=== PATIENT | female | born 1940 | race Caucasian/White ===

== ENCOUNTER 2025-05-31 11:31 | Day surgery (SDC) | payer BC, MEDICAID ==
[2025-05-31] VITALS (7 sets, daily range): BP systolic 142–174; BP diastolic 70–85; PULSE 62–77; RESP 16; TEMP 99; O2SAT 94–97
[~2025-05-31] VITALS: Ht 162.6 cm; Wt 58.4 kg
[~2025-05-31 11:31] MED LIST: ALB0.5UD NEB; APIX2.5T PO; ATOR80TA13 PO; HYDR-3972 PO; LEVO75TA7 PO; LOSA-415 PO; METO-384 PO; METO-395 PO; MONT-48 PO; OMEP40CA21 PO; ONDA-243 PO; OXYB5TAB21 PO; PRAM0.5T12 PO; SERT100T PO; SUMA25TA35 PO
[2025-05-31] MEDS ORDERED: fentaNYL/PF 50MCG/1 ML 2ML syringe ONE (12:20)
[2025-05-31] MEDS ORDERED: midazolam 1 mg/ML 2ml injection ONE (12:20)
[2025-05-31 12:31] LABS: MEAN PLATELET VOLUME 9.1 FL (7.4-10.4); RED CELL DISTRIBUTION WIDTH 17.6 % (11.5-14.5)
[2025-05-31 12:45] LABS: APTT 28 SECONDS (22-32); INR 1.1 INR
[2025-05-31 12:47] LABS: CREATININE 0.86 MG/DL (0.40-0.90); TOTAL CARBON DIOXIDE 26.5 MMOL/L (24-32); eCRCL 41 ML/MIN; eGFR 63 ML/MIN
[2025-05-31] MEDS ORDERED: ASPI81TA52 PO (15:27)
[2025-05-31] MEDS ORDERED: CLOP75TA34 PO (15:27)
--- NOTE | 2025-06-01 10:42 | CARDIOLOGY REPORT ---
APPROVED REPORT EXAM: Focused, limited transesophageal echocardiogram with color flow Doppler. Patient Location: [facility] Blood Pressure: 142/70 mmHg Heart Rate: 80 bpm Rhythm: Paced Indications POST WATCHMAN FLX DAPHNE CLOSURE DEVICE IMPLANTATION FOLLOW UP EVALUATE DEVICE FOR THROMBUS, POSITION, AND SEAL 24mm WATCHMAN FLX DAPHNE CLOSURE DEVICE 04/12/25 Pacemaker SUSAN PROBE PASSED BY: Nohemy Lopez MD Balance Truing Inspector is Nohemy Lopez MD Previous echo 04/13/25 [facility] 60-65% EF ; Intact interatrial septum with (small) L to R shunt s/p transs eptal puncture. LEFT VENTRICLE LV appears normal in size with mild concentric hypertrophy. Overall systolic function appears normal. LVEF is 60-65%. RIGHT VENTRICLE RV appears mildly dilated with normal contractility. ATRIA LA appears severely dilated. Intact interatrial septum with (small) L to R shunt s/p transseptal punc ture. Left upper pulmonary vein identified. Successfully occluded left atrial appendage with well vis ualized Watchman device well positioned without thrombus. No residual flow detected around device in all views. GREAT VESSELS Descending aorta is normal in caliber. PERICARDIUM There is no pericardial effusion, epicardial pad present. CONCLUSION LV appears normal in size with mild concentric hypertrophy. Overall systolic function appears normal. LVEF is 60-65%. RV appears mildly dilated with normal contractility. LA appears severely dilated. In tact interatrial septum with (small) L to R shunt s/p transseptal puncture. Left upper pulmonary vein identified. Successfully occluded left atrial appendage with well visualized Watchman device well po sitioned without thrombus. No residual flow detected around device in all views. There is no pericard ial effusion, epicardial pad present. Conclusion LV appears normal in size with mild concentric hypertrophy. Overall systolic function appears normal. LVEF is 60-65%. RV appears mildly dilated with normal contractility. LA appears severely dilated. Intact interatrial septum with (small) L to R shunt s/p transseptal punc ture. Left upper pulmonary vein identified. Successfully occluded left atrial appendage with well v isualized Watchman device well positioned without thrombus. No residual flow detected around device in all views. There is no pericardial effusion, epicardial pad present.
== END 2025-05-31 16:05 | disposition home or self-care (01) ==
LOC: SSTAY O 11:31
PROVIDERS: ATTEND Student in an Organized Health Care Education/Training Program
DX: I48.91 Unspecified atrial fibrillation (principal); I10 Essential (primary) hypertension; E03.9 Hypothyroidism, unspecified; Z95.0 Presence of cardiac pacemaker
CPT/HCPCS: 36415; 80048; 85025; 85610; 85730; 93312; 93325; J2250; J3010; J7030; 99152; A4615